=== PATIENT | male | born 1965 | race Caucasian/White ===

== ENCOUNTER 2017-04-03 10:21 | Day surgery (SDC) | payer BC ==
--- NOTE | 2017-04-03 05:38 | History and Physical Report ---
DATE: 04/02/2017. CHIEF COMPLAINT AND HISTORY OF CHIEF COMPLAINT: This is a patient with a very complicated history with a postlaminectomy radiculitis. His pain pattern appears to be in the low back with a left lower extremity extension all the way into the foot. Due to the failure of all therapies including a spinal cord stimulator trial, he is here for an implanted spinal infusion with hydromorphone to determine if the implantation of a permanent system can be of any value in pain control. PAST MEDICAL HISTORY: Hypertension, sleep apnea, degenerative arthritis, difficulty sleeping. PAST SURGICAL HISTORY: Appendectomy, three lumbar spinal surgeries, nasal surgery. MEDICATIONS ON ADMISSION: Provided. ALLERGIES: Penicillin, [place], Vicodin. SOCIAL HISTORY: Caffeine. FAMILY HISTORY: Diabetes, coronary artery disease, hypertension, cancer. REVIEW OF SYSTEMS: The patient seems appropriate and in no acute distress. The remainder of the review of systems shows [] PHYSICAL EXAMINATION: General: Height is 5 feet, 9 inches. Weight is 180 pounds. Vital Signs: Unavailable. HEENT: Within normal limits. Lungs: Clear. Heart: Regular rate and rhythm. Abdomen: Nontender. Musculoskeletal: Examination of the musculoskeletal system shows a pain pattern which is somewhat complicated. He has obvious sensory and motor restrictions and deficits into the left lower extremity. He has complete sensory deficits across L4 and L5 with motor and mechanical deficits across most of the left lower extremity. He has numbness, weakness, and tingling characterizing what he describes in both of his lower extremities. Sensory mariano are difficult to evaluate. Ambulation: Assistive device dependent. Neurologic: Cranial nerves are intact. IMPRESSION: 1. POSTLUMBAR LAMINECTOMY SYNDROME, ICD-10 CODE M96.1. 2. LUMBAR RADICULITIS, ICD-10 CODE M54.16 AND M54.17. PLAN: The patient is here for an implanted spinal catheter infusion trial with hydromorphone. The potential risks, side effects, and complications have been carefully reviewed and discussed including nerve root injury, spinal cord injury , and spinal headache. Information from the senior health consultant in a comprehensive book had previously been provided to the patient. He had reviewed this and we have discussed it. The patient and all family members understand the risks, complications, and potential side effects and have consented to the procedure. The catheter will be implanted. There will be an incision. The infusion will be started with hydromorphone at a low dose to rule out potential side effects and complications. A series of three increases will be planned. I would expect at least two increases will be required before we get to the degree of pain control which the patient would like to have. An epidural blood patch will be performed which, along with the implanted catheter, will help reduce the incidence of a spinal headache. All other instructions have been given. The potential complications and risks were provided. He understands and has consented. We will consider this procedure outpatient, although an overnight stay will be evaluated. JOB NUMBER: [id number] cc: Ruth Antonio
[~2017-04-03 10:21] MED LIST: ACETAMINOPHEN 1,000 MG/100 ML BTL IV ONE; CLINDAMYCIN 600MG/50ML PREMIX 600 MG/50 ML BAG IVPB ONE; FAMOTIDINE 20MG TABLET PO ONE; HYDROMORPHONE PF 2MG/ML AMP 0.004 MG in 0.9 % SODIUM CHLORIDE 10ML VIA 0.998 ML IV ONE; HYDROMORPHONE PF 2MG/ML AMP 2 MG in 0.9 % SODIUM CHLORIDE 500ML 499 ML IV ONE; MECLIZINE 25 MG TABLET PO ONE; METOCLOPRAMIDE 10 MG TABLET PO ONE
[2017-04-03] MEDS ORDERED: HYDROMORPHONE HCL 2 MG/ML VIAL IV ONE (10:22)
[2017-04-03] MEDS ORDERED: PROPOFOL 10 MG/ML VIAL IV ONE (10:22)
[2017-04-03] MEDS ORDERED: LIDOCAINE 1% W/EPI 1:200,000 MPF 30ML SQ ONE (10:22)
[2017-04-03] MEDS ORDERED: CLINDAMYCIN (PEDIATRIC DOSING) 150 MG/ML VIAL IVPB ONE (10:22)
[2017-04-03] MEDS ORDERED: BUPIVACAINE 0.75% W/EPI MPF 30ML VIAL IVP ONE (10:22)
[2017-04-03] MEDS ORDERED: *PACU ONLY* KETAMINE HCL 10 MG/ML (20ML) VIAL IV ONE (10:22)
[2017-04-03] MEDS ORDERED: LIDOCAINE 2% MDV (20MG/ML) 20ML VIAL IV ONE (10:22)
[2017-04-03] MEDS ORDERED: MIDAZOLAM HCL 2MG/2ML VIAL IV ONE (10:22)
[2017-04-03] MEDS ORDERED: FENTANYL PF 100MCG/2ML VIAL IV ONE (10:22)
[2017-04-03] MEDS ORDERED: METOCLOPRAMIDE HCL 10 MG/2 ML VIAL IVP PRN (13:39)
[2017-04-03] MEDS ORDERED: HYDROMORPHONE HCL 2 MG/ML VIAL IM PRN (13:39)
[2017-04-03] MEDS ORDERED: TEMAZEPAM 15 MG CAPSULE PO PRN ×2 (13:39)
[2017-04-03] MEDS ORDERED: SENNOSIDES/DOCUSATE SODIUM UD CAPSULE PO PRN ×2 (13:39)
[2017-04-03] MEDS ORDERED: ACETAMINOPHEN 325 MG TAB PO PRN ×2 (13:39)
[2017-04-03] MEDS ORDERED: METOCLOPRAMIDE 10 MG TABLET PO PRN (13:39)
[2017-04-03] MEDS ORDERED: DIPHENHYDRAMINE HCL 25 MG CAPSULE PO PRN ×2 (13:39)
[2017-04-03] MEDS ORDERED: OXYCODONE/APAP 10MG-325MG TABLET PO PRN (13:39)
[2017-04-03] MEDS ORDERED: DIPHENHYDRAMINE HCL IV 50 MG/ML VIAL IVP PRN ×2 (13:39)
[2017-04-03] MEDS ORDERED: HYDROCODONE/APAP 7.5/325MG TABLET PO PRN ×2 (13:39)
[2017-04-03] MEDS ORDERED: NALOXONE 0.4 MG/1 ML VIAL IVP PRN (13:39)
[2017-04-03] MEDS ORDERED: HYDROMORPHONE HCL 1 MG/ML SYRINGE IM PRN (13:39)
[2017-04-03] MEDS ORDERED: AL HYDROX/MAG HYDROX 30ML UD PO PRN (13:39)
[2017-04-03] MEDS: RINGERS SOLUTION,LACTATED 1,000 ML IV SCH ×2 (14:42→22:42)
[2017-04-03] MEDS: LISINOPRIL 20 MG TABLET PO SCH (18:08)
[2017-04-03] MEDS ORDERED: PATIENT OWN MED: PO SCH (20:00)
[2017-04-03] MEDS: PREGABALIN (LYRICA) 100MG CAPSULE PO SCH (20:03)
[2017-04-03] MEDS: OXYCODONE/APAP 10MG-325MG TABLET PO PRN ×2 (20:06→23:55)
[2017-04-03] MEDS: OXYMORPHONE PO SCH (20:10)
[2017-04-03] MEDS: [UNRECOGNIZED DRUG - OTHER] PO SCH (20:10)
[2017-04-03] MEDS: CLINDAMYCIN 600MG/50ML PREMIX 600 MG/50 ML BAG IVPB SCH (20:11)
[2017-04-04] MEDS: CLINDAMYCIN 600MG/50ML PREMIX 600 MG/50 ML BAG IVPB SCH ×2 (02:40→09:49)
[2017-04-04] MEDS: OXYCODONE/APAP 10MG-325MG TABLET PO PRN ×2 (06:05→09:49)
[2017-04-04] MEDS: RINGERS SOLUTION,LACTATED 1,000 ML IV SCH (06:09)
--- NOTE | 2017-04-04 07:22 | Operative Note - Ferro ---
DATE OF SURGERY: 04/03/2017. PREOPERATIVE DIAGNOSIS: 1. POSTLUMBAR LAMINECTOMY SYNDROME, ICD-10 CODE M96.1. 2. LUMBAR RADICULITIS, ICD-10 CODE M54.16 AND M54.17. POSTOPERATIVE DIAGNOSIS: 1. POSTLUMBAR LAMINECTOMY SYNDROME, ICD-10 CODE M96.1. 2. LUMBAR RADICULITIS, ICD-10 CODE M54.16 AND M54.17. OPERATION: 1. Fluoroscopically guided spinal access at L2-3, thin-walled spinal needle, paramedian approach, beveled with the long axis. Using AP and lateral images carefully, slowly, placing needle into the spinal space with cerebrospinal fluid flow. No fasciculations and no pain on the part of the patient. A thin- walled spinal catheter was advanced and positioned at T12. 2. Cerebrospinal fluid flow noted through the spinal catheter. Diagnostic myelography was performed. The resulting flow characteristics showed appropriate spinal flow characteristics at T12, L1, L2. No pain on the part of the patient. No fasciculations. Smooth linear flow of contrast noted, confirming catheter position; again, with the tip at T12. 3. Spinal opioid bolus of hydromorphone 0.003 mg. 4. Incision, subcutaneous dissection, and anchoring of spinal catheter to the supraspinous fascia after the needle was removed. With the catheter lying on the field, cerebrospinal fluid flow continued. Catheter clamped to stop cerebrospinal fluid leak. A nonabsorbable pursestring suture was placed around the penetration point, minimizing cerebrospinal fluid loss through the needle penetration. 5. An anchoring device was placed and secured to the supraspinous fascia with nonabsorbable suture holding the catheter in place. 6. Incision, subcutaneous dissection at right posterior gluteal margin, the site picked by the patient ultimately for the placement of the pump. 7. Subcutaneous dissection was conducted to form a small pouch. A tunneling tool was then used to connect the spinal incision pouch with the posterior pouch and then carry the external portion of the spinal catheter into the pump pouch. At this pouch, the spinal catheter was interfaced with a second catheter component by way of a connector. This second catheter component was tunneled superior 6.0 cm exiting the skin. The external catheter component was then interfaced to an external pump which was set to deliver hydromorphone at 0.05 mg a day. 8. The midline incision was then closed with Vicryl for the fascia and running subcuticular Vicryl for the skin. The right posterior gluteal pouch was closed with a running nylon suture. 9. Epidural blood patch at L3-4, 20 mL autologous blood drawn with sterile technique. The epidural access was performed by 18-gauge Tuohy needle with loss of resistance. 10. All of the dressings were reinforced. The spinal catheter and its connections were then placed under sterile dressing. 11. He was transported to the recovery room flat with a pillow under his head and knees, showing no indication of complications or trauma from the blood patch , spinal catheter placement, or sedation. SURGEON: Jl Funez D.O. INDICATION: This patient presents with a history of an intractable postlaminectomy radiculitis. Due to the failure of therapy, he was evaluated and currently is here for an implanted spinal catheter infusion trial with hydromorphone to determine if the implantation of a permanent system would be of any value in pain control. He has failed all therapies. Noted during the initial consult evaluation and again today, the patient was demonstrating a continuous grunt and groan from pain which appeared to be in his left lower extremity and foot and the right side of his low back. Continuous grunting and grimacing was noted throughout this evaluation prior to surgery. The entire procedure was explained and reviewed with the patient, his , and his mother. All questions were answered. DESCRIPTION OF PROCEDURE: Intravenous line, vital sign monitoring, and intravenous sedation. Prepped and draped with sterile technique. The patient was positioned prone. The spinal interspace was accessed at L2-3. The spine had been fused at 5-1 and had a laminectomy at 4-5. At 2-3, using a paramedian approach, the skin was infiltrated. A 20-gauge spinal needle, beveled with a long axis paramedian approach, was used and guided by AP and lateral imaging. On the lateral image, the needle was slowly advanced into the spinal space. With cerebrospinal fluid flow a thin-walled spinal catheter was advanced and positioned under AP and lateral imaging at T12. The catheter was clamped. The skin above and below the needle was infiltrated and an incision wad made. Subcutaneous dissection was conducted to the supraspinous fascia. The needle was removed, and the catheter was anchored to the supraspinous fascia with an anchoring device and nonabsorbable suture. With the catheter lying flat on the field, cerebrospinal fluid flow was noted. At that point, diagnostic myelography was performed. The resulting flow characteristics were appropriate for spinal flow. The tip of the catheter was identified in the midline at T12. An injection of opioid and hydromorphone at 0.003 mg was given in the spinal space. Contrast was used to further irrigate through the catheter, pushing the remaining component of the opioid into the cerebrospinal fluid. The catheter was laid flat on the sterile filed, and cerebrospinal fluid was still noted coming through the catheter. The catheter was clamped to stop the cerebrospinal fluid leak. A pursestring suture had been placed around the catheter penetration site also to help limit cerebrospinal fluid leak prior to the anchor being sutured to the supraspinous fascia, further anchoring the catheter down. At the right posterior gluteal margin, our site picked by the patient for the ultimate pump implant, the skin was infiltrated. An incision was made, and subcutaneous dissection was conducted to form a small subcutaneous pouch. A tunneling tool was used to carry the external portion of the spinal catheter into this posterior pouch. The catheter was then interfaced with a second catheter component by way of a connector. The second catheter component was tunneled 6.0 cm above the posterior pouch, exiting the skin. The external catheter was then interfaced to an external pump set to deliver hydromorphone at 0.05 mg a day. The midline incision was closed with Vicryl for the fascia and running subcuticular Vicryl for the skin. The posterior pouch was then closed with a running nylon suture. At L3-4, which was one level below the dural puncture, the skin was infiltrated. An 18-gauge Tuohy needle with loss of resistance was positioned into the epidural space. A total of 20 mL of autologous blood had been drawn using sterile technique from the left antecubital region. While maintaining sterility, this blood was placed onto the field, and then an epidural blood patch was performed at this level with this blood. The needle was then removed. A dressing was placed, securing the catheter and all connectors under sterile dressing. He was then transported to the recovery room flat with a pillow under his head and knees. He showed no side effects from the procedure or the sedation. He will be kept flat for four hours and then slowly elevated for one hour. He will then be evaluated for discharge. He tolerated the procedure without difficulty. DISCHARGE INSTRUCTIONS: 1. The sites are to remain clean and dry. No showering or bathing in any way that would disrupt dressings. If this happens, contact the clinic. 2. Standard medications are to be resumed including Levaquin the antibiotic 500 mg once a day. 3. His oral opioids which are Opana and Percocet will be slowly reduced during the trial period. The extended-release Opana will be left intact, but the Percocet should be reduced during the trial period to its discontinuation. At that point, the patient understands that his Opana will also be slowly titrated down and discontinued. 4. Possible side effects were discussed including the potential for opioid side effects such as respiratory depression, nausea, vomiting, constipation, urinary retention, and rash. If he has any of these side effects he is to contact the clinic. 5. All other instructions were provided and numbers to contact with problems were given. 6. Three increases in dosing will be scheduled during the two-week trial period. The fist increase will be done within the next three to five days. JOB NUMBER: [id number] cc: Ruth Antonio
[2017-04-04] MEDS: PREGABALIN (LYRICA) 100MG CAPSULE PO SCH (08:09)
[2017-04-04] MEDS: [UNRECOGNIZED DRUG - OTHER] PO SCH (08:10)
[2017-04-04] MEDS: OXYMORPHONE PO SCH (08:10)
[2017-04-04] MEDS: LISINOPRIL 20 MG TABLET PO SCH (09:49)
[2017-04-04] MEDS ORDERED: MOVANTIK 25 MG PO SCH (10:00)
[2017-04-04] MEDS ORDERED: DULOXETINE HCL 30 MG CAPSULE.DR PO SCH (10:00)
--- NOTE | 2017-04-04 13:16 | RADIOLOGY REPORT ---
EXAM: THORACOLUMBAR PINE, SINGLE VIEW HISTORY: POSTOP. TECHNIQUE: A single portable view of the lower thoracic and lumbar spine was obtained. Comparison: Intraoperative images from the same date. FINDINGS: There is partial visualization of a catheter with the tip projecting over the T12-L1 interspace. Correlate with intraoperative findings. IMPRESSION: SINGLE IMAGE SUBMITTED WITH THE CATHETER TIP PROJECTING OVER T12-L1. JOB NUMBER: [id number] MTDD
--- NOTE | 2017-04-05 06:31 | Operative Note - Ferro ---
DATE OF SURGERY: 04/03/2017. PREOPERATIVE DIAGNOSIS: 1. POSTLAMINECTOMY SYNDROME, ICD-10 CODE M96.1. 2. LUMBAR RADICULITIS, ICD-10 CODE M54.16 AND M54.17. 3. IMPLANTED SPINAL CATHETER INFUSION SYSTEM WITH EXTERNAL PUMP OCCLUSION ALARM ; NONFUNCTIONAL SYSTEM. POSTOPERATIVE DIAGNOSIS: 1. POSTLAMINECTOMY SYNDROME, ICD-10 CODE M96.1. 2. LUMBAR RADICULITIS, ICD-10 CODE M54.16 AND M54.17. 3. IMPLANTED SPINAL CATHETER INFUSION SYSTEM WITH EXTERNAL PUMP OCCLUSION ALARM ; NONFUNCTIONAL SYSTEM. OPERATION: Removal and redressing of externalized spinal catheter with removal of pursestring suture around the externalized catheter component. SURGEON: Jl Funez D.O. ANESTHESIA: None required. INDICATION: This is a patient who, just within the last several hours, had an implanted spinal catheter infusion trial with hydromorphone initiated with an external infusion device infusing hydromorphone at 0.05 mg a day. DESCRIPTION OF PROCEDURE: Once transported to the floor for observation, an alarm started with the external pump indicating occlusion. While on the floor, the dressing was removed, and the site was inspected. The pump was changed to rule out simple pump-related failures which did not result in resolution. He was then taken into the operating room, and the dressings were removed. A nylon pursestring suture around the externalized catheter was removed. The pump was restarted, and no occlusion was identified. The dressings were replaced, and he was transported back to the floor for monitoring and observation. JOB NUMBER: [id number] MTDD
== END 2017-04-04 10:25 | disposition home or self-care (01) ==
LOC: SUR 10:21 → MEDSURG 14:47 → SUR 04-04 10:25
PROVIDERS: ATTEND Pain Medicine Interventional Pain Medicine
DX: M96.1 Postlaminectomy syndrome, not elsewhere classified (principal); M54.16 Radiculopathy, lumbar region; M54.17 Radiculopathy, lumbosacral region; T85.695A Other mechanical complication of other nervous system device, implant or graft, initial encounter; I10 Essential (primary) hypertension
CPT/HCPCS: 62350; 00630; 72020; Q9967; J3010; J1170 ×2; J3490; J7040; J7120

== ENCOUNTER 2017-04-17 10:36 | Day surgery (SDC) | payer BC ==
--- NOTE | 2017-04-17 05:03 | History and Physical Report ---
DATE: 04/16/2017. CHIEF COMPLAINT AND HISTORY OF CHIEF COMPLAINT: This is a patient who presented on 04/02/2017. He had an implanted spinal catheter infusion trial with hydromorphone. He has achieved up to 50 to 75 percent pain control, and he is here for permanent implantation of the programmable pump itself. PAST MEDICAL HISTORY: Unchanged. PAST SURGICAL HISTORY: Unchanged. MEDICATIONS ON ADMISSION: Unchanged. ALLERGIES: Penicillin, [place], Vicodin. SOCIAL HISTORY: Unchanged. FAMILY HISTORY: Unchanged. REVIEW OF SYSTEMS: The patient seems appropriate and in no acute distress. The remainder of the systems review is unchanged. PHYSICAL EXAMINATION: General: Height and weight are not available. Vital Signs: Unavailable. HEENT: Within normal limits. Lungs: Clear. Heart: Regular rate and rhythm. Abdomen: Nontender. Musculoskeletal: Examination shows the dressings for the implanted spinal catheter trial to be intact. The externalized infusion pump and its connections are intact. The underlying pain pattern is in the low back, postlaminectomy, with radiculitis. Neurologic: Cranial nerves are intact. IMPRESSION: 1. POSTLUMBAR LAMINECTOMY SYNDROME, ICD-10 CODE M96.1. 2. LUMBAR RADICULITIS, ICD-10 CODE M54.16 AND M54.17. 3. IMPLANTED SPINAL CATHETER INFUSION TRIAL WITH HYDROMORPHONE. PLAN: This patient has achieved significant success and wants to move toward a permanent implant. No side effects are noted. His infusion rate is relatively high; it is currently at 0.2 mg a day. This requires a special consideration with respect to the size of the reservoir. Normal reservoir for his body type would be a 20 mL, but because of this requirement, a 40 mL pump may be a better option. We will discuss this in some detail, and I have given him this to consider. Putting this in the posterior gluteal margin may be somewhat difficult, and perhaps the flank may be a better option. He will consider and advise us. The potential risks, side effects, and complications have all been carefully reviewed and discussed. The procedure will be considered outpatient, although an overnight stay will be evaluated. JOB NUMBER: [id number] cc: Ruth Antonio
[~2017-04-17 10:36] MED LIST changes: +HYDROMORPHONE HCL 0.08 GM in 0.9 % SODIUM CHLORIDE 10ML VIA 40 ML IV ONE; +HYDROMORPHONE HCL/PF 0.002 MG in 0.9 % SODIUM CHLORIDE 10ML VIA 0.998 ML IVP ONE; -HYDROMORPHONE PF 2MG/ML AMP 0.004 MG in 0.9 % SODIUM CHLORIDE 10ML VIA 0.998 ML IV ONE; -HYDROMORPHONE PF 2MG/ML AMP 2 MG in 0.9 % SODIUM CHLORIDE 500ML 499 ML IV ONE
[2017-04-17] MEDS ORDERED: LIDOCAINE 2% MDV (20MG/ML) 20ML VIAL IV ONE (10:37)
[2017-04-17] MEDS ORDERED: PROPOFOL 10 MG/ML VIAL IV ONE (10:37)
[2017-04-17] MEDS ORDERED: CLINDAMYCIN (PEDIATRIC DOSING) 150 MG/ML VIAL IVPB ONE (10:37)
[2017-04-17] MEDS ORDERED: BUPIVACAINE 0.75% W/EPI MPF 30ML VIAL IVP ONE (10:37)
[2017-04-17] MEDS ORDERED: LIDOCAINE 1% W/EPI 1:200,000 MPF 30ML SQ ONE (10:37)
[2017-04-17] MEDS ORDERED: MIDAZOLAM HCL 2MG/2ML VIAL IV ONE (10:37)
[2017-04-17] MEDS ORDERED: *PACU ONLY* KETAMINE HCL 10 MG/ML (20ML) VIAL IV ONE (10:37)
[2017-04-17] MEDS ORDERED: FENTANYL PF 100MCG/2ML VIAL IV ONE (10:37)
[2017-04-17] MEDS ORDERED: LABETALOL HCL 5MG/ML, 20ML VIAL IVPB ONE (10:37)
[2017-04-17] MEDS ORDERED: RINGERS SOLUTION,LACTATED 1,000 ML IV PRN (15:13)
[2017-04-17] MEDS ORDERED: NALOXONE 0.4 MG/1 ML VIAL IVP PRN (15:13)
[2017-04-17] MEDS ORDERED: HYDROCODONE/APAP 7.5/325MG TABLET PO PRN ×2 (15:55)
[2017-04-17] MEDS ORDERED: OXYCODONE/APAP 10MG-325MG TABLET PO PRN ×2 (15:55)
[2017-04-17] MEDS: PREGABALIN (LYRICA) 100MG CAPSULE PO SCH (22:56)
--- NOTE | 2017-04-18 06:33 | Operative Note - Ferro ---
DATE OF SURGERY: 04/17/2017. PREOPERATIVE DIAGNOSIS: 1. POSTLUMBAR LAMINECTOMY SYNDROME, ICD-10 CODE M96.1. 2. LUMBAR RADICULITIS, ICD-10 CODE M54.16 AND M54.17. 3. IMPLANTED SPINAL OPIOID INFUSION SYSTEM WITH HYDROMORPHONE. POSTOPERATIVE DIAGNOSIS: 1. POSTLUMBAR LAMINECTOMY SYNDROME, ICD-10 CODE M96.1. 2. LUMBAR RADICULITIS, ICD-10 CODE M54.16 AND M54.17. 3. IMPLANTED SPINAL OPIOID INFUSION SYSTEM WITH HYDROMORPHONE. OPERATION: 1. Incision, subcutaneous dissection, and removal of external catheter. 2. Incision, subcutaneous dissection, and creation of subcutaneous pouch at right posterosuperior gluteal margin. Placement of pump identified as a [employer] 20 mL programmable prefilled with hydromorphone. 3. Revision of indwelling spinal catheter, removing connection to external catheter. Revise and resect with second catheter component which will interface to pump. 4. Interface revised catheter to pump. Placement of pump into pouch, securing to posterior fascia at two points using pump eyelets and nonabsorbable suture. 5. Placement of curved 24-gauge Rowland needle to access port. Aspiration and clearing of opioid and cerebrospinal fluid mixture. 6. Bolus of hydromorphone 4.8 mg. 7. Diagnostic myelography with radiologic supervision and interpretation. 8. Closure of incision with Vicryl for the fascia and running subcuticular Vicryl for the skin. Dermabond closure. Programming of pump to deliver by continuous infusion hydromorphone at 0.2 mg per day. SURGEON: Jl Funez D.O. ANESTHESIA: Local sedation. ANESTHESIA PROVIDER: Kori Pelletier CRNA. INDICATION: This patient presents with a history of intractable postlaminectomy radiculitis. An indwelling spinal catheter infusion with hydromorphone currently is at a high dose over 24 hours of 0.2 mg. His pain level continues to be escalating. Although he indicates pain control at 50 to 75 percent, he continues to be painful and has some side effects. Due to the lack of any other successful therapies and the intractable nature of his pain, he is here for implantation of a permanent system. PROCEDURE: Intravenous lines, vital sign monitoring, and intravenous sedation. Prepped and draped with sterile technique. The patient was positioned on the operating room table prone. At the right posterior gluteal margin where there was a small pouch formed to interface the indwelling catheter with a second catheter which was externalized to the pump, the skin was infiltrated. An incision was made, and subcutaneous dissection was conducted to the connector between the internal and external catheter. The catheter was clamped, and the external catheter was removed by pulling away from the incision. Subcutaneous dissection was then conducted for a pouch of suitable size and depth for the pump itself. Antibiotic irrigation and Bovie for hemostasis. The new pump prefilled with hydromorphone was placed onto the field. The indwelling catheter which had been sectioned from the external catheter was then revised and resected with a catheter to interface a new catheter component for the pump. The revised catheter was then interfaced to the pump. The pump was placed into the pouch and secured with nonabsorbable suture at two points with pump eyelets securing the pump into the pouch. A curved 24-gauge Rowland needle was inserted into the access port, and 1.0 mL of catheter contents was aspirated , clearing the catheter of opioid and cerebrospinal fluid mixture. Contrast was then handed over in a 3.0 mL syringe. What was suspected as contrast was then injected through the access port into the catheter. It was then identified that this was not contrast but actually a hydromorphone solution. The result was a 4.8 mg bolus of hydromorphone through the spinal catheter and not contrast. At that point, 3.0 mL of catheter contents and cerebrospinal fluid was aspirated through the access port, clearing the catheter of any residual opioid and any opioid within the proximity of the catheter tip in the cerebrospinal fluid. Contrast was then injected. The resulting myelogram with radiologic supervision identified appropriate catheter position and flow characteristics. At that point, the incision was closed with Vicryl for the fascia and running subcuticular Vicryl for the skin. Dermabond closure. The pump was programmed back to the original parameters of 0.2 mg a day. He was transported to the recovery room stable, showing no side effects from the bolus or from the surgery. He was somewhat somnolent but appropriately responsive. His vital signs were all stable. DISCHARGE INSTRUCTIONS: 1. Because of the inadvertent placement of the bolus of hydromorphone, the patient will be kept overnight for observation. 2. Appropriate monitoring will be conducted with continuous pulse oximetry. Orders include bedside Narcan for a bolus as well as for intravenous administration. The patient did receive a high dose of Dilaudid intraspinal but has a significant pain pattern and a very high requirement for oral analgesics. I would suspect that there will be no significant consequence short of sedation and perhaps somnolence. We will monitor appropriately and be prepared and ready to administer the Narcan if necessary. Appropriate documentation has been completed, the family was all notified, and everyone is aware of the situation. He was stable and transported to the floor for observation. 3. Discharge instructions in the morning will be typical. We will consider increasing his infusion in the morning if necessary. Spinal opioid side effects are biphasic within 6 to 12 hours maximum. He will be monitored throughout this period of time and will be discharged when it is obvious that he is not showing any consequence of the opioid. 4. The sites are to remain clean and dry. No showering or bathing in any way that would disrupt dressings; although the Dermabond dressing will allow showering within 24 to 48 hours. 5. Standard medications including the antibiotic Levaquin 500 mg once a day for 14 days, will be continued. 6. The office will contact the patient on the following morning to set up an appointment within the next five to seven days to check the sites. 7. All other instructions were provided and numbers to contact with problems were given. He will then be prepared for discharge. JOB NUMBER: [id number] MTDD
[2017-04-18] MEDS ORDERED: OXYMORPHONE PO SCH (09:00)
[2017-04-18] MEDS: PREGABALIN (LYRICA) 100MG CAPSULE PO SCH (10:39)
--- NOTE | 2017-04-18 12:51 | RADIOLOGY REPORT ---
EXAM: LUMBAR SPINE HISTORY: STIMULATOR PLACEMENT. TECHNIQUE: A single AP view of the lumbar spine was performed. FINDINGS: The stimulator lead tip is at the T12-L1 level. IMPRESSION: THE STIMULATOR LEAD TIP IS AT THE T12-L1 LEVEL. JOB NUMBER: [id number] MTDD
== END 2017-04-18 10:30 | disposition home or self-care (01) ==
LOC: SUR 10:36 → MEDSURG 14:39 → SUR 04-18 10:30
PROVIDERS: ATTEND Pain Medicine Interventional Pain Medicine
DX: M96.1 Postlaminectomy syndrome, not elsewhere classified (principal); M54.16 Radiculopathy, lumbar region; M54.17 Radiculopathy, lumbosacral region; I10 Essential (primary) hypertension
CPT/HCPCS: 62367; 72020; C1755; J1170; J3490